=== PATIENT | female | born 2000 | race Caucasian/White ===

== ENCOUNTER 2019-03-10 21:15 | Emergency (ER) | payer BC ==
[2019-03-10] MEDS ORDERED: Acetaminophen TAB* 325 MG PO ONE (23:39)
[2019-03-10] MEDS ORDERED: Ondansetron INJ* 2 MG/ML VIAL IV ONE (23:42)
--- NOTE | 2019-03-10 23:48 | ED ---
Abdominal Pain/Female - HPI Summary HPI Summary: 18-year-old obese female with no significant past medical history presents to the emergency department complaining of nausea vomiting and diarrhea and fever x one day. She states all these symptoms began this morning after she had a glass of milk. She also endorses a 10 out of 10 right upper and lower quadrant abdominal pain which began at the same time. She states she has had 4 bouts of emesis and 2 bouts of diarrhea since this began. She denies chest pain, shortness of breath, pain with urination, vaginal discharge, blood per rectum, dark stools, light colored stools. Family history is noncontributory. She denies recent alcohol, occasional drug use, smoking. - History of Current Complaint Chief Complaint: EDNauseaVomitDiarrh Stated Complaint: VOMITTING,SHAKEY PER PT Time Seen by Provider: 03/10/19 23:28 Hx Obtained From: Patient, Family/School Program Director - mother and father Onset/Duration: Sudden Onset Timing: Constant Severity Initially: Mild Severity Currently: Moderate Pain Intensity: 7 Pain Scale Used: 0-10 Numeric Location: Discrete At: RUQ, Discrete At: RLQ Radiates: No Character: Dull Aggravating Factor(s): Food Alleviating Factor(s): Position, Vomiting, Bowel Movement Associated Signs and Symptoms: Positive: Fever, Decreased Appetite, Nausea, Vomiting, Diarrhea. Negative: Blood in Stool, Urinary Symptoms Allergies/Adverse Reactions: Allergies Allergy/AdvReac Type Severity Reaction Status Date / Time Penicillins Allergy Unknown Verified 03/10/19 21:21 Reaction Details PMH/Surg Hx/FS Hx/Imm Hx Infectious Disease History: No Infectious Disease History: Denies: Traveled Outside the [place] in Last 30 Days - Social History Alcohol Use: None Substance Use Type: Reports: None Smoking Status (MU): Never Smoked Tobacco Review of Systems Positive: Fever Eyes: Negative ENT: Negative Cardiovascular: Negative Respiratory: Negative Positive: Abdominal Pain, Vomiting, Diarrhea, Nausea Genitourinary: Negative Musculoskeletal: Negative Skin: Negative Neurological: Negative Psychological: Normal All Other Systems Reviewed And Are Negative: Yes Physical Exam Triage Information Reviewed: Yes Vital Signs On Initial Exam: Initial Vitals Temp Pulse Resp BP Pulse Ox 99.6 F 124 16 120/77 98 03/10/19 21:17 03/10/19 21:17 03/10/19 21:17 03/10/19 21:17 03/10/19 21:17 Vital Signs Reviewed: Yes Appearance: Positive: Well-Appearing, No Pain Distress, Well-Nourished Skin: Positive: Warm, Skin Color Reflects Adequate Perfusion Head/Face: Positive: Normal Head/Face Inspection Eyes: Positive: Normal, EOMI ENT: Positive: Hearing grossly normal Respiratory/Lung Sounds: Positive: Clear to Auscultation, Breath Sounds Present Cardiovascular: Positive: Tachycardia, S1, S2 Abdomen Description: Positive: Soft, Other: - Patient is obese. Visualization of the abdomen reveals no signs or masses or ecchymosis. Auscultation reveals normoactive bowel sounds. Percussion reveals no areas of hypertympany. . Patient endorses mild discomfort with palpation of the right upper quadrant with slight guarding and no rigidity. Negative obturator, psoas, Rovsing, McBurney's sign. Positive Phillips sign. Negative: CVA Tenderness (R), CVA Tenderness (L), Distended, Guarding, Hernia @, McBurney's Point Tenderness Neurological: Positive: Sensory/Motor Intact, Alert, Oriented to Person Place, Time, Normal Gait, Facial Symmetry, Speech Normal Psychiatric: Positive: Normal AVPU Assessment: Alert Procedures - Sedation Patient Received Moderate/Deep Sedation with Procedure: No Diagnostics - Vital Signs Vital Signs Temp Pulse Resp BP Pulse Ox 03/10/19 23:32 101.4 F 03/10/19 22:49 99.6 F 115 18 112/84 98 03/10/19 21:17 99.6 F 124 16 120/77 98 - Laboratory Result Diagrams: 03/10/19 23:51 03/10/19 23:51 Lab Statement: Any lab studies that have been ordered have been reviewed, and results considered in the medical decision making process. Abdominal Pain Fem Course/Dx - Course Course Of Treatment: Patient was evaluated in the emergency department for abdominal pain. The patient was seen and examined. Patient's vital signs revealed she was febrile and had tachycardia with a temperature of 101.4 and a heart rate of 115. She was given 650 mg of Tylenol by mouth and 4 mg of Zofran for nausea. An IV was established and laboratory studies and a right upper quadrant ultrasound to investigate possible cholecystitis was obtained. Laboratory studies returned showing no evidence of leukocytosis. No evidence of anemia. electrolytes were all normal except for a magnesium of 1.8 and a blood glucose of 120. She is asymptomatic for hypomagnesemia and hyperglycemia. C-reactive protein was mildly elevated at 33.10 likely due to expected gastroenteritis. Lipase was negative. Ultrasound of the right upper quadrant found no acute findings for The pancreas appeared normal. The study was limited due to body habitus. She was given 2 mg of magnesium sulfate to replace the lost magnesium from her emesis and diarrhea. She was given 1 L of lactated Ringer's due to suspected mild dehydration and tachycardia. Considering laboratory results negative right upper quadrant ultrasound it is likely the patient is suffering from an acute viral gastroenteritis. Due to the sudden onset of her symptoms, lack of pus or blood in her stool and the number of bowel movements she is having a day it is decided she did not require antibiotic therapy. After the patient was given Tylenol, 1 L of lactated Ringer 's, 2 mg of magnesium sulfate her vital signs improved significantly and she stated she felt much better. Prior to discharge her heart rate was 98 and her temperature was 99.7. She was told to follow-up with her PCP tomorrow or the next day for further evaluation and management of her symptoms as it appeared there were no acute pathology occurring. She was told increase oral intake of fluids to avoid dehydration and to take Tylenol for fever as needed. She was told to return to the emergency department immediately if she developed any new or worsening symptoms. Patient and her parents agreed with this plan. - Diagnoses Differential Diagnosis: Positive: Gall Bladder Disease, Other - Viral gastroenteritis Provider Diagnoses: Gastroenteritis Discharge ED - Sign-Out/Discharge Documenting (check all that apply): Patient Departure - Discharge Plan Condition: Stable Disposition: HOME Patient Education Materials: Gastroenteritis (ED) Referrals: Vikash Peng PA [Primary Care Provider] - 2 Days Additional Instructions: You were seen in the emergency department today due to nausea, vomiting, diarrhea. It was determined that this is most likely a viral gastroenteritis and there is no acute pathology causing your symptoms. You did not require antibiotics but please take Tylenol as needed for fever and increase oral intake of fluids. Please return to the emergency department immediately if you develop any new or worsening symptoms. Please follow up with your primary care provider in one to 2 days for further evaluation of your symptoms. Return to activity as tolerated. - Billing Disposition and Condition Condition: STABLE Disposition: Home
[2019-03-10 23:56] LABS: ABS Lymphocytes 0.3 10^3/ul (1.0-4.8); ABS Monocytes 0.3 10^3/ul (0-0.8); ABS Neutrophils 7.9 10^3/ul (1.5-7.7); Hematocrit 41 % (35-47); Hemoglobin 13.8 g/dL (12.0-16.0); Lymphocyte % 3.7 %; Mean Corpuscular HGB Conc 34 g/dL (31-36); Mean Corpuscular Hemoglobin 29 pg (27-31); Mean Corpuscular Volume 85 fL (80-97); Platelet Count 202 10^3/uL (150-450); Red Cell Distribution Width 13 % (10-15); White Blood Count 8.5 10^3/uL (3.5-10.8)
[2019-03-11 00:15] LABS: ALT 8 U/L (7-52); AST 14 U/L (13-39); Albumin 4.2 g/dL (3.2-5.2); Albumin/Globulin Ratio 1.4 (1-3); Alkaline Phosphatase 66 U/L (34-104); Anion Gap 6 mmol/L (2-11); BUN/Creatinine Ratio 25.7 (8-20); Blood Urea Nitrogen 18 mg/dL (6-24); CO2 Carbon Dioxide 27 mmol/L (22-32); Calcium 9.2 mg/dL (8.6-10.3); Chloride 103 mmol/L (101-111); EGFR African American 129.1 (>60); EGFR Non-African American 106.7 (>60); Glucose 120 mg/dL (70-100); Magnesium 1.8 mg/dL (1.9-2.7); Sodium 136 mmol/L (135-145); Total Protein 7.2 g/dL (6.4-8.9)
[2019-03-11 00:20] LABS: HCG Pregnancy < 0.60 mIU/mL
[2019-03-11] MEDS ORDERED: Magnesium Sulfate 2 GM IV* 2 GM/50 ML BAG IVPB ONE (00:22)
[2019-03-11] MEDS ORDERED: Lactated Ringers 1000 ML Bag* 1,000 ML IV ONE (01:00)
[2019-03-11 01:59] LABS: Urine Appearance Cloudy; Urine Bilirubin Negative (Negative); Urine Blood Negative (Negative); Urine Color Yellow; Urine Glucose Negative (Negative); Urine Ketones 2+ (Negative); Urine Nitrite Negative (Negative); Urine Protein Negative (Negative); Urine Specific Gravity 1.034 (1.010-1.030); Urine Urobilinogen Negative (Negative)
[2019-03-11 02:18] VITALS: BP 106/67
== END 2019-03-11 02:13 | disposition home or self-care (01) ==
LOC: ED 21:15
DX: K52.9 Noninfective gastroenteritis and colitis, unspecified (principal); Z88.0 Allergy status to penicillin
CPT/HCPCS: 36415; 76705; 80053; 81003; 83690; 83735; 84702; 85025; 86140; 96365; 96375; 99282; A9270-GY; J2405; J3475